=== PATIENT | female | born 1985 | race Caucasian/White ===

== ENCOUNTER 2018-07-12 10:21 | Day surgery (SDC) | payer OTHER, SELFPAY ==
[2018-07-12 11:44] VITALS: BMI 24.2
[2018-07-12 11:47] LABS: Amnisure Internal Control QC ACCEPTABLE (ACCEPTABLE)
[2018-07-12 11:48] VITALS: BP 130/74; TEMP 98
[2018-07-12 11:50] LABS: Amnisure Test No Membranes Rupture (No Rupture)
--- NOTE | 2018-07-12 15:00 | CON ---
DATE OF CONSULTATION: 07/12/2018 PRIMARY OB: Efren Brian MD HISTORY OF PRESENT ILLNESS: The patient is a 33-year-old, G2, P1 female with an intrauterine at 30 weeks and 4 days, who was sent from clinic for concerns of leakage of fluid for evaluation of premature rupture of membranes. The patient reports that last night around 1130, she noticed leaking when she was getting into bed and has felt wet ever since. She denies any persistent leaking, but does state that she feels that things just are not the same. The patient denies any bleeding. She denies uterine contractions. She denies urinary urgency or frequency. She denies fever, abdominal tenderness, headache, chest pain, shortness of breath, nausea, vomiting, diarrhea, or constipation. She denies any new rashes. The patient does have hip problems and back problems that she attributes to the , but has not given her significant concern. PAST MEDICAL HISTORY: Asthma off medication. PAST SURGICAL HISTORY: Ovarian cystectomy. SOCIAL HISTORY: Denies drug, alcohol, or tobacco use. ALLERGIES: PENICILLINS, VITAMINS, AND VITAMINS. MEDICATIONS: vitamins. OB LABS: Unavailable. REVIEW OF SYSTEMS: Per HPI. PHYSICAL EXAMINATION: VITAL SIGNS: Blood pressure 130/74, heart rate is 79, respiratory rate 18, and temperature 98.0. GENERAL: She appears to be in no acute distress. She is alert, oriented, cooperative, and pleasant to interact with. HEAD: Normocephalic and atraumatic. LUNGS: Clear to auscultation bilaterally. HEART: Has regular rate and rhythm. ABDOMEN: Soft, gravid, and nontender. EXTREMITIES: Nontender and nonedematous. PELVIC: Vulva is without masses, lesion, or erythema. Vagina is moist with a minimal cloudy white watery discharge. There is no pulling on Valsalva. VP3 and AmniSure both collected. Cervix is closed and thick on digital exam. heart tracing and NST for leakage of fluid demonstrates a baseline in the 140s with moderate long-term variability, 130s with moderate long-term variability, positive 15 x 15 accelerations, no decelerations. The tocometer shows some possible irritability, not felt by the patient. AmniSure test is negative and VP3 is negative for Trichomonas, Gardnerella, and Megan. ASSESSMENT AND PLAN: The patient is a 33-year-old, G2, P1 female with an intrauterine at 30 weeks and 4 days with no evidence of rupture of membranes. The patient has been given reassurance. Fetus is reactive with a category 1 tracing. No evidence of Trichomonas, bacterial vaginosis, yeast infection, or rupture of membranes. The patient has been given precautions and given instructions to follow up with her primary OB should symptoms persist or worsen as testing is not exhaustive for all potential infections. The patient has appointment to follow up with Dr. Brian in 2 weeks. Job ID: [id number]
== END 2018-07-12 13:07 | disposition home health service (06) ==
LOC: L&D/OP 10:21
PROVIDERS: ATTEND Obstetrics & Gynecology
DX: O99.89 Other specified diseases and conditions complicating pregnancy, childbirth and the puerperium (principal); N89.8 Other specified noninflammatory disorders of vagina; O99.513 Diseases of the respiratory system complicating pregnancy, third trimester; J45.909 Unspecified asthma, uncomplicated; Z79.899 Other long term (current) drug therapy; Z3A.30 30 weeks gestation of pregnancy; Z88.0 Allergy status to penicillin; Z88.8 Allergy status to other drugs, medicaments and biological substances
CPT/HCPCS: 76815; 84112; 87480; 87510; 87660; 99285

== ENCOUNTER 2018-09-09 21:00 | Inpatient (IN) | payer BC ==
--- NOTE | 2018-09-09 20:51 | PDOC.LDHP ---
Labor and Delivery H&P Chief complaint: scheduled induction Current gestational age (weeks): 39 Due date: 09/16/18 Grav: 2 Para: 1 Current complications: none Abnormal US findings: No Current medications: pre- vitamins Previous surgical history: none Allergies/Adverse Reactions: Allergies Allergy/AdvReac Type Severity Reaction Status Date / Time No Known Drug Allergies Allergy Verified 07/12/18 11:45 Social history: none - Physical Exam Vital signs reviewed and normal: yes General: NAD, resting Heart: RRR Lungs: CTAB Abdomen: NTTP Extremeties: no edema FHT: category 1 - Assessment L&D Assessment: elective induction at term - Plan Plan: admit to L&D, cervical ripening
[~2018-09-09 21:00] MED LIST: Bupivacaine/Epinephrine 0.25% 30 ML VIAL ONE; Carboprost 250 MCG/ML AMP IM PRN; Diphenoxylate HCl/Atropine Tablet PO PRN; HYDROcodone/Acetaminophen 5/325 mg Tablet PO PRN; Ibuprofen 800 MG TAB PO PRN; Lidocaine 1% (PF) 30 ML VIAL SC PRN; Methylergonovine 0.2 MG/ML VIAL IM PRN; Misoprostol 200 MCG TAB PR PRN; NS / Oxytocin 40 units/1000ml 1,000 ML IV PRN; Ondansetron PF 4 MG/2 ML Vial IVP PRN; Promethazine HCl 25 MG/ML VIAL IM PRN; Zolpidem Tartrate 5 MG TAB PO PRN
[2018-09-09] MEDS ORDERED: NS w/ Oxytocin 10 units 500 ML IV SCH ×2 (21:45)
[2018-09-09 22:15] VITALS: BMI 25.5
[2018-09-09] MEDS: Lactated Ringer's 1,000 ML IV SCH (22:35)
[2018-09-09] MEDS: Misoprostol 100 MCG TAB VAG SCH (22:36)
[2018-09-09 23:11] LABS: Hemoglobin 8.7 g/dL (12.0-16.0); Mean Corpuscular HGB CONC 31.2 g/dL (32.0-36.0); Mean Corpuscular Hemoglobin 22.4 pg (27.0-31.0); Mean Corpuscular Volume 71.7 fL (78.0-98.0); Mean Platelet Volume 11.2 fL (7.4-10.4); Platelet Count 202 thou/uL (130-400); RBC Distribution Width 16.9 % (11.5-14.5); Red Blood Cell (RBC) Count 3.91 mill/uL (4.20-5.40); White Blood Cell (WBC) Count 10.8 thou/uL (4.8-10.8)
[2018-09-09 23:28] LABS: Syphilis Antibody Nonreactive (Nonreactive); Syphilis Antibody Index 0.07 S/CO (<1.00 Non-Reactive)
[2018-09-09 23:35] LABS: HBSAg Index 0.31 S/CO (0-0.99); Hep B Surf Ag Non-Reactive S/CO (NonReactive)
[2018-09-10] MEDS: Misoprostol 100 MCG TAB VAG SCH ×2 (04:00→06:01)
[2018-09-10] MEDS: Lactated Ringer's 1,000 ML IV SCH (06:08)
[2018-09-10] MEDS: Butorphanol Tartrate 1 MG/ML VIAL SLOW IVP PRN ×3 (06:08→12:06)
[2018-09-10] MEDS ORDERED: Misoprostol 100 MCG TAB PO SCH (07:15)
[2018-09-10] MEDS ORDERED: Fentanyl 4 mcg/Bup 0.1% Cadd 100 ML ONE (11:53)
[2018-09-10] MEDS ORDERED: Fentanyl 100 MCG/2 ML VIAL ONE (12:17)
[2018-09-10] MEDS ORDERED: Lidocaine 1% (PF) 30 ML VIAL ONE (14:12)
[2018-09-10] MEDS ORDERED: Ondansetron PF 4 MG/2 ML Vial IVP PRN (16:32)
[2018-09-10] MEDS ORDERED: HYDROcodone/Acetaminophen 5/325 mg Tablet PO PRN ×2 (16:32)
[2018-09-10] MEDS ORDERED: diphenhydrAMINE 25 MG CAP PO PRN (16:32)
[2018-09-10] MEDS ORDERED: Bisacodyl 10 MG SUPP PR PRN (16:32)
[2018-09-10] MEDS ORDERED: Preparation H Ointment 28 GM TUBE PR PRN (16:32)
[2018-09-10] MEDS ORDERED: NS / Oxytocin 40 units/1000ml 1,000 ML IV SCH (16:32)
[2018-09-10] MEDS ORDERED: Adacel (T-DAP) 0.5 ML SYRINGE IM ONE (16:32)
[2018-09-10] MEDS ORDERED: Benzocaine-Menthol 82.5 ML CAN TOP PRN (16:32)
[2018-09-10] MEDS ORDERED: Milk Of Magnesia 30 ML UDCUP PO PRN (16:32)
[2018-09-10] MEDS ORDERED: Lanolin Ointment 7 GM TUBE TOP PRN (16:32)
[2018-09-10] MEDS ORDERED: Varicella virus, LIVE 0.5 ML VIAL SC ONE (16:32)
[2018-09-10] MEDS ORDERED: Measles/Mumps/Rubella 10 MCG/0.5 ML VIAL SC ONE (16:32)
[2018-09-10] MEDS ORDERED: Promethazine HCl 25 MG/ML VIAL IM PRN (16:32)
[2018-09-10] MEDS ORDERED: Ferrous Sulfate 325 MG TAB PO SCH (17:00)
[2018-09-10] MEDS ORDERED: diphenhydrAMINE 12.5 MG/5 ML UDCUP PO PRN (20:32)
[2018-09-10] MEDS ORDERED: Hydrocodone-Acetamin 15 ML UDCUP PO PRN ×2 (20:55→20:56)
[2018-09-10] MEDS ORDERED: Docusate Calcium (SURFAK) 240 MG CAP PO SCH (21:00)
[2018-09-10] MEDS: Ibuprofen 800 MG TAB PO SCH (21:05)
[2018-09-11] MEDS: Docusate Sodium 100 MG/10 ML UDCUP PO SCH ×2 (01:49→10:18)
[2018-09-11] MEDS: Misoprostol 100 MCG TAB VAG SCH (01:50)
[2018-09-11] MEDS: Lactated Ringer's 1,000 ML IV SCH (01:50)
[2018-09-11 07:25] LABS: Hemoglobin 8.1 g/dL (12.0-16.0); Mean Corpuscular HGB CONC 30.3 g/dL (32.0-36.0); Mean Corpuscular Hemoglobin 22.6 pg (27.0-31.0); Mean Corpuscular Volume 74.7 fL (78.0-98.0); Mean Platelet Volume 11.1 fL (7.4-10.4); Platelet Count 143 thou/uL (130-400); RBC Distribution Width 16.9 % (11.5-14.5); Red Blood Cell (RBC) Count 3.59 mill/uL (4.20-5.40)
[2018-09-11] MEDS: Prenatal Vitamin 1 TAB PO SCH (10:19)
--- NOTE | 2018-09-11 11:14 | PDOC.PP ---
Post Progress Note Post Day #: 1 PO intake tolerated: yes Flatus: yes Ambulation: yes Vital Signs (12 hours) Temp Pulse Resp BP Pulse Ox 09/11/18 07:45 98.7 F 64 16 112/63 99 09/11/18 04:55 97.6 F 63 18 128/70 09/11/18 00:32 98.0 F 59 L 16 118/59 L 97 Weight Weight 163 lb - Physical Examination General: NAD Cardiovascular: no m/r/g Respiratory: clear to auscultation bilaterally Abdominal: + bowel sounds, lochia, no distention, appropriately TTP Extremities: negative homans (B) Neurological: no gross focal deficits Psychiatric: A&Ox3, normal affect (DC to home tomorrow.) Result Diagrams: 09/11/18 07:10 Additional Labs: Post Labs Blood Type O POSITIVE 09/09/18 22:28 Hep Bs Antigen Non-Reactive S/CO (NonReactive) 09/09/18 22:28
[2018-09-11] MEDS: Ibuprofen 800 MG TAB PO SCH ×2 (12:29→12:30)
--- NOTE | 2018-09-12 02:09 | DN ---
DATE OF PROCEDURE: 09/10/2018 PREOPERATIVE DIAGNOSIS: Intrauterine at 39 weeks and 1 day with elective induction of labor. POSTOPERATIVE DIAGNOSIS: Intrauterine at 39 weeks and 1 day with elective induction of labor. PROCEDURE PERFORMED: Spontaneous vaginal delivery over first-degree laceration of the perineum. FINDINGS: A viable male infant, weighing 3270 g or 7 pounds 3 ounces, Apgars of 8 and 9. QUANTITATIVE BLOOD LOSS: 180 mL. COMPLICATIONS: None. PROCEDURE IN DETAIL: The patient presented to [facility] where she was admitted to the labor and delivery service. The patient underwent a normal and uneventful labor with normal cervical dilatation until she was found to be completely dilated. She was then allowed to push and was able to bring the baby down and delivered the baby in a vertex presentation without difficulties. Once the head delivered in occiput anterior position, the shoulders followed spontaneously along with the rest of the baby's body. Once out the baby's mouth and nose were bulb suctioned. The cord was clamped and cut and baby was handed to waiting attendants. Cord blood was collected. Gentle fundal massage was performed and the placenta delivered intact without problems. Hemostasis was assured. Quantitative blood loss was calculated. Inspection of the cervix, vaginal vault, and perineum did not reveal any lacerations needing suturing. Once again, hemostasis was within normal limits and the patient was allowed to recover in the labor and delivery room. Baby went to nursery. Job ID: [id number]
[2018-09-12] MEDS: Ibuprofen 800 MG TAB PO SCH ×3 (03:51→14:52)
[2018-09-12] MEDS: Docusate Sodium 100 MG/10 ML UDCUP PO SCH ×2 (03:51→08:45)
[2018-09-12 08:16] VITALS: BP 127/74; TEMP 98.4
[2018-09-12] MEDS: Prenatal Vitamin 1 TAB PO SCH (08:45)
== END 2018-09-12 16:00 | disposition home or self-care (01) | DRG 807 ==
LOC: L&D 21:35 → 3SW 09-10 17:36
PROVIDERS: ADMIT Obstetrics & Gynecology; ATTEND Obstetrics & Gynecology
PROC: 3E033VJ Introduction of Other Hormone into Peripheral Vein, Percutaneous Approach (ICD-10-PCS; 2018-09-09)
PROC: 10E0XZZ Delivery of Products of Conception, External Approach (ICD-10-PCS; principal; 2018-09-10)
PROC: 3E0P7VZ Introduction of Hormone into Female Reproductive, Via Natural or Artificial Opening (ICD-10-PCS; 2018-09-10)
DX: O70.0 First degree perineal laceration during delivery (principal); Z37.0 Single live birth; Z3A.39 39 weeks gestation of pregnancy
CPT/HCPCS: 36415; 51702; 85027; 86780; 86850; 86900; 86901; 87340; 90707; 90715; 90716; J0595; J2001; J2590; J3010

== ENCOUNTER 2019-11-11 11:32 | Emergency (ER) | payer BC ==
[2019-11-11 12:57] LABS: #Basophils 0.1 thou/uL (0.0-0.2); #Eosinphils 0.2 thou/uL (0.0-0.7); #Lymphocytes 2.5 thou/uL (1.20-3.40); #Monocytes 0.7 thou/uL (0.11-0.59); #Neutrophils 4.2 thou/uL (1.40-6.50); %Eosinophils 2.3 % (0.0-10.0); %Lymphocytes 32.9 % (21.0-51.0); %Neutrophils 54.8 % (42.0-75.0); Hemoglobin 13.1 g/dL (12.0-16.0); Mean Corpuscular Hemoglobin 27.9 pg (27.0-31.0); Mean Platelet Volume 10.4 fL (7.4-10.4); Platelet Count 196 thou/uL (130-400); RBC Distribution Width 16.1 % (11.5-14.5); Red Blood Cell (RBC) Count 4.72 mill/uL (4.20-5.40); White Blood Cell (WBC) Count 7.6 thou/uL (4.8-10.8)
[2019-11-11 13:17] LABS: ALT (SGPT) 13 U/L (8-55); AST (SGOT) 17 U/L (5-34); Albumin 4.2 g/dL (3.5-5.0); Alkaline Phosphatase 74 U/L (40-110); Anion Gap 13 mmol/L (10-20); BUN (Urea Nitrogen) 7 mg/dL (7.0-18.7); Bilirubin, Total 0.3 mg/dL (0.2-1.2); Calc. Creatinine Clearance 0 mL/min (70-130); Calcium 9.1 mg/dL (7.8-10.44); Carbon Dioxide 23 mmol/L (22-29); Chloride 103 mmol/L (98-107); Estimated GFR-MDRD 82; Globulin 3.4 g/dL (2.4-3.5); Glucose 76 mg/dL (70-105); Potassium 4.1 mmol/L (3.5-5.1); Protein, Total 7.6 g/dL (6.0-8.3); Sodium 135 mmol/L (136-145)
[2019-11-11 14:01] LABS: Bacteria/HPF None Seen HPF (None Seen); Bilirubin Negative (Negative); Blood, Urine 1+ (Negative); Clarity Clear (Clear); Glucose, Urine (Dipstick) Normal (Negative); Leukocyte Negative Leu/uL (Negative); Nitrite Negative (Negative); Protein, Urine (Dipstick) Negative (Neg-Trace); RBC/HPF 21-50 HPF (0-3); Squamous Epithelial 0-3 HPF (0-3); Urobilinogen Normal mg/dL (Less than 2); WBC/HPF 0-3 HPF (0-3)
--- NOTE | 2019-11-11 14:14 | ULT ---
PELVIC ULTRASOUND: 11/11/19 Transabdominal and endovaginal ultrasound of pelvis performed. INDICATIONS: Vaginal bleeding. FINDINGS: There is an intrauterine . A pole is identified with a crown-rump length indicating an 8 week, 0 day gestation. No heart activity could be identified with Doppler study with spectral analysis and color Doppl er. No motion identified. The findings indicate demise. Gestational sac appears normal. The maternal ovaries are unremarkable. Both ovaries are identified an d color Doppler with spectral analysis demonstrates blood flow to both ovaries. IMPRESSION: There appears to be a nonviable intrauterine . A pole is identified; however, no heart tones could be identified with Doppler. The technologist notified the ER physician of this finding. POS: JOHN
== END 2019-11-11 14:32 | disposition home or self-care (01) ==
LOC: ERS 11:32
DX: O02.1 Missed abortion (principal)
CPT/HCPCS: 36415; 76856; 80053; 81003; 81015; 84702; 85025; 86900; 86901